=== PATIENT | male | born 1995 | race Caucasian/White ===

== ENCOUNTER 2019-01-12 16:24 | Emergency (ER) | payer BC ==
[2019-01-12 16:50] VITALS: BP 125/68
--- NOTE | 2019-01-12 17:28 | UC ---
Complaint Male HPI - HPI Summary HPI Summary: 23 yo man with history of exposure to syphilis from a male partner about a month ago, with initial testing at [facility] being negative for Syphilis. Once case confirmed, treatment and follow up testing advised. Last month, tested positive for both Chlamydia and Gonorrhea, both of which have been treated. HIV testing was negative last month and further testing is not requested. He has been having mild discomfort with voiding, no dysuria or frequency - History of Current Complaint Chief Complaint: UCGU Stated Complaint: PERSONAL Time Seen by Provider: 01/12/19 16:41 Hx Obtained From: Patient Onset/Duration: Other - no symptoms, but is aware of a small nodule in the anal canal. Checked at [facility] and was thought benign, but requests reassessment of this. Pain Intensity: 0 Location: None Prior STD Hx: Gonorrhea and Chlamydia recently treated. HIV negative. - Risk Factors Testicular Torsion: Negative - Allergies/Home Medications Allergies/Adverse Reactions: Allergies Allergy/AdvReac Type Severity Reaction Status Date / Time No Known Allergies Allergy Verified 01/12/19 16:41 Home Medications: Home Medications Escitalopram * [Lexapro *] 20 mg PO DAILY 01/12/19 [History Confirmed 01/12/19] Fexofenadine (NF) [Sangeeta 180 (NF)] 180 mg PO DAILY 01/12/19 [History Confirmed 01/12/19] PMH/Surg Hx/FS Hx/Imm Hx Previously Healthy: Yes Psychological History: Anxiety, Depression - Surgical History Surgical History: None - Family History Known Family History: Positive: Cardiac Disease - MGM [place], Other - MGF had CA prostate; aunt had ovarian cancer - Social History Occupation: Employed Full-time Alcohol Use: Occasionally Substance Use Type: Marijuana Substance Use Comment - Amount & Last Used: OCCASIONALLY Smoking Status (MU): Never Smoked Tobacco Review of Systems All Other Systems Reviewed And Are Negative: Yes Constitutional: Negative: Fever, Chills, Fatigue Skin: Negative: Rash Genitourinary: Positive: Dysuria - very mild discomfort with voiding, Ulceration /Lesion - anal canal. Negative: Hematuria, Frequency, Urgency, Vaginal/Penile Burning, Vaginal/Penile Itching, Vaginal/Penile Discharge, Vaginal/Penile Pain Neurological: Positive: Negative. Negative: Headache Physical Exam Triage Information Reviewed: Yes Appearance: Well-Appearing, Obese Vital Signs: Initial Vital Signs Temp 98.4 F 01/12/19 16:42 Pulse 82 01/12/19 16:42 Resp 17 01/12/19 16:42 BP 125/68 01/12/19 16:42 Pulse Ox 98 01/12/19 16:42 Eyes: Positive: Conjunctiva Clear ENT: Positive: Pharynx normal Neck: Positive: Supple, Nontender, No Lymphadenopathy Respiratory: Positive: Lungs clear, Normal breath sounds Cardiovascular: Positive: RRR, No Murmur Abdomen Description: Positive: Nontender, No Organomegaly, Soft, Other: - anal canal with small smooth hemorrhoid about 5 mm. No ulceration, no evidence of condyloma Psychological Exam: Normal Skin Exam: Normal Skin: Negative: Rashes, Significant Lesion(s) Complaint Male Course/Dx - Course Course Of Treatment: Given Bicillin 2.4 million unites im with follow up to [facility]. - Differential Dx/Diagnosis Differential Diagnosis/HQI/PQRI: Urinary Tract Infection, Other - STI Provider Diagnosis: Syphilis contact, treated Discharge - Sign-Out/Discharge Documenting (check all that apply): Patient Departure All imaging exams completed and their final reports reviewed: No Studies - Discharge Plan Condition: Stable Disposition: HOME Patient Education Materials: Sexually Transmitted Diseases (ED), Syphilis (ED) Referrals: Susan SORIA,[facility] [place] [Primary Care Provider] - Additional Instructions: As reviewed, in the next 24 hours you could experience fever, chills, headache because of a possible JHR reaction should you have early syphilis. This can be managed with ibuprofen or tylenol, but if the headache is severe please go to an emergency room for assessment. You have scheduled follow up with Dr. Valenzuela (Infectious disease specialisty) to discuss PreP. The results of the testing should be available in about 48 hours. - Billing Disposition and Condition Condition: STABLE Disposition: Home
[2019-01-12] MEDS ORDERED: Penicillin G Benzathine 2.4MU* 2,400,000 UNITS/4 ML SYR IM ONE (17:31)
== END 2019-01-12 18:32 | disposition home or self-care (01) ==
LOC: UCCORT 16:24
DX: Z20.2 Contact with and (suspected) exposure to infections with a predominantly sexual mode of transmission (principal); R30.0 Dysuria; F41.9 Anxiety disorder, unspecified; E66.9 Obesity, unspecified; K64.4 Residual hemorrhoidal skin tags; F32.9 Major depressive disorder, single episode, unspecified; Z79.899 Other long term (current) drug therapy; Z86.19 Personal history of other infectious and parasitic diseases
CPT/HCPCS: 36415; 81003; 86780; 96372; 99201; G0463; J0561